=== PATIENT | male | born 1950 | race Caucasian/White ===

== ENCOUNTER 2020-12-24 10:33 | Outpatient (CLI) | payer MEDICARE, SELFPAY ==
--- NOTE | ~2020-12-24 | US_ITS ---
EXAMINATION: US venous doppler [facility] DATE: 12/24/2020 11:23 INDICATION: Left lower limb pain TECHNIQUE: Suresh scale images without and with compression and Doppler images of the left lower extrem ity veins were obtained. COMPARISON: None FINDINGS: The left common femoral vein, profunda femoral vein, femoral vein, popliteal vein, peroneal trunk, posterior tibial veins, and greater saphenous vein are patent. IMPRESSION: 1. Patent left lower extremity veins. No evidence of deep venous thrombosis. Reviewed, dictated and finalized at location B. [employer]
== END 2020-12-24 10:34 | disposition home or self-care (01) ==
PROVIDERS: PCP Hospitalist; Visit Provider Internal Medicine Cardiovascular Disease
DX: M79.662 Pain in left lower leg (principal)
CPT/HCPCS: 93971

== ENCOUNTER 2022-01-31 01:00 | Day surgery (SDC) | payer MEDICARE, SELFPAY ==
[2022-01-28 14:08] VITALS: BMI 31.9
[2022-01-31] VITALS (20 sets, daily range): BP systolic 135–162; BP diastolic 68–96; PULSE 78–93; RESP 12–16; TEMP 36.4–36.9; O2SAT 90–97; BMI 33.3
[2022-01-31 09:25] LABS: Anion Gap 7 mmol/L (8-16); Basophils Percent Auto 0.1 % (0.2-1.2); Blood Urea Nitrogen 18 mg/dL (9-20); Calcium 9.2 mg/dL (8.4-10.2); Carbon Dioxide 28 mmol/L (22-30); Chloride 102 mmol/L (98-107); Estimated CRCL calculation 88 ml/min; Estimated Glomerular Filt Rate > 60; Glucose 134 mg/dL (65-110); Hematocrit 43.7 % (42.0-52.0); Hemoglobin 14.8 g/dL (14.0-18.0); Immature Granulocyte Absolute 0.03 K/mm3 (0.00-0.031); Immature Granulocyte Percent A 0.4 % (0-0.5); Lymphocytes Absolute Auto 1.14 K/mm3 (0.9-3.2); Lymphocytes Percent Auto 13.4 % (18.3-44.2); Mean Corpuscular HGB Conc 33.9 g/dl (32-36); Mean Corpuscular Hemoglobin 30.3 pg (26-34); Mean Corpuscular Volume 89.4 fl (80-100); Monocytes Absolute Auto 0.6 K/mm3 (0.1-0.6); Monocytes Percent Auto 6.6 % (2.6-8.5); Neutrophils Absolute Auto 6.8 K/mm3 (1.3-6.7); Neutrophils Percent Auto 79.5 % (45.5-73.1); Platelet Count Result 283 k/mm3 (150-375); Potassium 4.6 mmol/L (3.4-5.0); Red Blood Count 4.89 M/mm3 (4.6-6.20); Red Cell Distribution Width 11.9 % (11.5-14.5); Sodium 137 mmol/L (137-145); White Blood Count 8.5 K/mm3 (4.5-10.0)
--- NOTE | 2022-01-31 10:13 | WPDMODSED ---
Moderate Sedation Note-Pt Data Patient Data Diagnosis: recent episode of chest pain during stressful procedure abnormal nuclear stress test Present Complaint: no complaints this morning Procedure to be performed/Plan: left heart catheterization Allergies Allergy/AdvReac Type Severity Reaction Status Date / Time latex Allergy Unknown Unknown Verified 01/31/22 08:46 Penicillins Allergy Unknown Unknown Verified 01/31/22 08:46 shellfish derived Allergy Unknown Unknown Verified 01/31/22 08:46 SHELLFISH Allergy Mild Anaphylactic Uncoded 01/14/15 13:01 Shock Home Medications Medication Instructions Recorded Confirmed Type ascorbic acid (vitamin C) 1,000 mg 1,000 mg PO DAILY 01/28/22 01/28/22 History tablet aspirin 81 mg tablet 81 mg PO DAILY 01/28/22 01/28/22 History calcium carb-magnesium oxide-vit 1 cap PO DAILY 01/28/22 01/28/22 History D3 200 mg-100 mg-100 unit capsule carvedilol 12.5 mg tablet 12.5 mg PO BID 01/28/22 01/28/22 History cetirizine 10 mg tablet (Zyrtec) 10 mg PO DAILY 01/28/22 01/28/22 History coenzyme Q10 100 mg capsule 100 mg PO DAILY 01/28/22 01/28/22 History esomeprazole magnesium 20 mg 20 mg PO DAILY 01/28/22 01/28/22 History tablet,delayed release flaxseed oil 1,000 mg capsule 1,000 mg PO DAILY 01/28/22 01/28/22 History lisinopril 10 mg tablet 10 mg PO DAILY 01/28/22 01/28/22 History magnesium oxide 400 mg PO DAILY 01/28/22 01/28/22 History kuxhjmpu-mfy-rvopr acid 0.4 1 tablet PO DAILY 01/28/22 01/28/22 History mg-lycopene 300 mcg-lutein 250 mcg tablet (Centrum Silver) omega 2-zco-mot-fish oil 1,200 mg 1 cap PO DAILY 01/28/22 01/28/22 History (144 mg-216 mg) capsule vitamin B complex 1 tablet PO DAILY 01/28/22 01/28/22 History Current Medications: Active Medications Sodium Chloride (Normal Saline Iv) 500 mls @ 100 mls/hr IV CONT .Q5H MARLYN Sedation/Anesthesia: No previous sedation/anesthesia problems (including family history). [facility] Family History Family History (Updated 12/17/15 @ 08:10 by DOCTOR UNKNOWN) Sibling Family history of congestive heart failure Other Family history of cardiovascular disease Family history of elevated blood lipids Hypertension Social History Social History Smoking status: Former smoker Tobacco type: cigarettes Alcohol intake: never Alcohol use details: About once a month Substance use type: does not use Living arrangements: with family Spiritual care concerns: No Mod Sed Physical Exam Physical Exam Pre Procedural Exam: Normal: Neck, Throat, Airway, Lungs, Heart Size, Heart Rate, Heart Rhythm, Neuro Exam and Extremities and Variation: Appearance ( pleasant overweight gentleman no distress) Hours since solid foods: 12 Hours since liquid intake: 12 Mallampati Classification: class II Internal Medicine - PN: Obj Da Vital Signs Vital Signs: Vital Signs - 24 hr 01/31/22 08:48 Temperature 36.4 C L Pulse Rate 90 Respiratory Rate 12 Blood Pressure 159/85 H Pulse Oximetry 96 Oxygen Delivery Room Air Meds/Results Medications: Active Medications Generic Name Dose Route Start Last Admin Trade Name Freq PRN Reason Stop Dose Admin Sodium Chloride 500 mls @ 100 mls/hr 01/31/22 08:30 Normal Saline Iv IV CONT .Q5H MARLYN Labs 01/31/22 08:41 01/31/22 08:41 Labs: Laboratory Results - last 24 hr 01/31/22 01/31/22 08:41 08:41 WBC 8.5 RBC 4.89 Hgb 14.8 Hct 43.7 MCV 89.4 MCH 30.3 MCHC 33.9 RDW 11.9 Plt Count 283 MPV 10.0 Immature Gran % (Auto) 0.4 Neut % (Auto) 79.5 H Lymph % (Auto) 13.4 L Dundy % (Auto) 6.6 Eos % (Auto) 0.0 Baso % (Auto) 0.1 L Lymph # (Auto) 1.14 Dundy # (Auto) 0.6 Eos # (Auto) 0.0 Baso # (Auto) 0.0 Abs Immat Gran (auto) 0.03 Absolute Neuts (auto) 6.8 H Absolute Nucleated RBC 0.0 Nucleated RBC % 0.0 Sodium 137 Potassium 4.6 Chloride 102 Carbon Dioxide 28 Anio
--- NOTE | 2022-01-31 10:44 | P.PCNCC_ITS ---
Cardiac Cath Procedure Note Date of procedure:: 01/31/22 Performing physician:: Endy Anderson MD Indication:: recent episode of chest pain abnormal nuclear stress test Brief clinical history:: this is a 71-year-old man followed in our office who has mild supravalvular pulmonic stenosis. He had recent set of chest pain following back injection. He had a nuclear stress test as result of this which was mildly abnormal suggesting some inferior ischemia. As result of this an angiogram has been recommended. Procedure Procedure performed:: Left ventriculogram coronary angiogram Sedation/Medication given:: fentanyl 50 mg Versed 2 mg case start time 10:24 a.m. case end time 10:40 a.m. sedation provided by Windy Falcon RN, trained observer Access site:: right femoral artery Estimated blood loss:: 25 cc Procedure note:: patient was brought to the cardiac catheterization lab in the postabsorptive state where the right femoral triangle was prepared and draped in the usual fashion. Anesthesia was provided with 1% lidocaine infiltrated locally. Using the modified Seldinger technique a 5 [place] sheath was placed into the femoral artery after which left heart catheterization was carried out. A 5 [place] angled pigtail catheter was used to measure left-sided hemodynamics and to inject LV g a 30 degree MILLS projection. Following this the left coronary artery was engaged and injected in multiple views using a 5 [place] FL4 catheter. The right coronary artery was engaged and injected using a 5 [place] WRP catheter. The cineangiograms were then reviewed and the case was terminated an angiogram was done of the femoral artery through the sheath after which it was elected to have the sheath removed with direct manual compression. The procedure was uncomplicated and well tolerated he had no sign of groin hematoma upon leaving the lab technologist. Findings:: Hemodynamics: Central aortic pressure is 162 over 82 left ventricle 162 over 80 end-diastolic pressure 18 there is systolic gradient upon pullback across the aortic valve. Left ventricle: The LV is normal in size all segments contract appropriately the ejection fraction is vigorous 65-70% by visual estimation. The left main coronary artery is nicely patent the left anterior descending is a large caliber vessel extending down to around the apex. The LAD itself is angiographically normal. There is about 40-50% stenosis at the origin of the major diagonal branch. The circumflex is a medium caliber vessel giving rise to the marginal branches the circumflex system is smooth and angiographically normal in appearance the right coronary artery is very large in caliber dominant to the posterior circulation the RCA is also smooth and angiographically normal in appearance Conclusion:: 1. right coronary -circulation with no angiographically significant coronary artery disease. Mild 50% stenosis at the origin of the major diagonal branch of the LAD is noted which is not flow-limiting. 2. Vigorous left ventricular systolic function with systemic hypertension Endy Anderson MD FACC
[2022-01-31] MEDS: LABETALOL HCL INJ 100 MG/20 ML VIAL 20 MG IV PUSH (11:05)
[2022-01-31] MEDS: SODIUM CHLORIDE 0.9% IV 1,000 ML 125 ML IV CONT (11:15)
--- NOTE | 2022-01-31 11:52 | SUR.PHASEII ---
phase II started @1100. 20mg IV push labetalol given per MD request before sheath removal. Sheath removed intact @1132. 25 minutes of manual pressure held until hemostasis @1157. Transparent dressing and stat seal applied. pt and spouse educated about bedrest and signs & symptoms of arterial bleeding.
== END 2022-01-31 17:00 | disposition home or self-care (01) ==
PROVIDERS: PCP Hospitalist; Visit Provider Specialist
PROC: 4A023N7 Measurement of Cardiac Sampling and Pressure, Left Heart, Percutaneous Approach (ICD-10-PCS; CPT 93452; principal; 2022-01-31 10:00)
DX: R94.39 Abnormal result of other cardiovascular function study (principal); R07.9 Chest pain, unspecified; Q22.1 Congenital pulmonary valve stenosis; Z79.82 Long term (current) use of aspirin; Z87.891 Personal history of nicotine dependence
CPT/HCPCS: 36415; 80048; 85025; 93458; C1887; C1894; J0461; J1644; J2250; J3010; J7030; J7040